=== PATIENT | male | born 1985 | race Asian ===

== ENCOUNTER 2016-11-07 23:27 | Emergency (ER) | payer OTHER ==
[2016-11-07 23:42] VITALS: BP 123/89
--- NOTE | 2016-11-08 00:21 | EDM.PDOC ---
ED HPI GENERAL MEDICAL PROBLEM - General Chief Complaint: Back Pain or Injury Stated Complaint: WORK INJURY RIGHT SIDE RIBS AREA/BACL Time Seen by Provider: 11/07/16 23:47 Source of Information: Reports: Patient History Limitations: Reports: No Limitations - History of Present Illness INITIAL COMMENTS - FREE TEXT/NARRATIVE: This is a 31-year-old male. 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 Apparently Wednesday he was pulling some produce while standing on a ladder and he had to reach up overhead and pulled real hard because the boxes were stuck with his right hand. He noted some pulling in his right side at the time but he is continued to work all week. 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 Due to the soreness and pain he comes to the ER. He says when he breathes real deep gets a catch in his side. He denies difficulty in breathing denies any other acute symptoms. Right Thoracic Pain Score (Numeric/FACES): 8 - Related Data Allergies Allergy/AdvReac Type Severity Reaction Status Date / Time aspirin Allergy Nose Bleeds Verified 11/07/16 23:42 Home Meds: Home Meds Cyclobenzaprine [Flexeril] 10 mg PO BEDTIME PRN #10 tablet 11/08/16 [Rx] Past Medical History - Past Health History Medical/Surgical History: Denies Medical/Surgical History Social & Family History - Tobacco Use Smoking Status *Q: Current Every Day Smoker Years of Tobacco use: 7 Packs/Tins Daily: 0.2 - Caffeine Use Caffeine Use: Reports: Energy Drinks - Recreational Drug Use Recreational Drug Use: No ED ROS GENERAL - Review of Systems Review Of Systems: See Below Constitutional: Reports: No Symptoms HEENT: Reports: No Symptoms Respiratory: Reports: Other (As per history of present illness) Cardiovascular: Reports: No Symptoms Endocrine: Reports: No Symptoms GI/Abdominal: Reports: No Symptoms : Reports: No Symptoms Musculoskeletal: Reports: Other (As per history of present illness) Skin: Reports: No Symptoms Neurological: Reports: No Symptoms Psychiatric: Reports: No Symptoms ED EXAM, UPPER BACK/NECK PAIN - Physical Exam Exam: See Below Exam Limited By: No Limitations General Appearance: Alert, WD/WN, No Apparent Distress Ears Exam: Normal External Exam Nose Exam: Normal Inspection Throat/Mouth Exam: Normal Inspection, Normal Lips, Normal Voice Head Exam: Normocephalic Neck Exam: Non-Tender, Full Range of Motion Cardiovascular/Respiratory: Regular Rate, Rhythm, No M/R/G GI/Abdominal: Soft Back Exam: Other (He has tenderness in his right rhomboid muscles and the left isthmus dorsi and trapezius muscles and also some tenderness in the lateral right ribs on palpation but there is no crepitus there is no movement of the ribs and there is no actual rib tenderness, reaching with his arm or overhead with his arm causes soreness in the side and catching in his side) Extremities: Normal Inspection, Normal Range of Motion, Other (He has full range of motion of his right shoulder even overhead) Neurologic: No Motor/Sensory Deficits, Alert, Normal Mood/Affect, Oriented x 3 Psychiatric: Normal Affect, Normal Mood Skin Exam: Normal Color, Warm/Dry Course - Vital Signs Last Recorded V/S: Last Vital Signs Temp 97 F 11/07/16 23:38 Pulse 66 11/07/16 23:38 Resp 16 11/07/16 23:38 BP 123/89 11/07/16 23:38 Pulse Ox 100 11/07/16 23:38 Departure - Departure Time of Disposition: 00:19 Disposition: Home, Self-Care 01 Condition: Good Clinical Impression: Upper back pain on right side Sprain of ribs Qualifiers: Encounter type: initial encounter Qualified Code(s): S23.41XA - Sprain of ribs , initial encounter Upper back strain Qualifiers: Encounter type: initial encounter Qualified Code(s): S29.012A - Strain of muscle and tendon of back wall of thorax, initial encounter - Discharge Information Prescriptions: Cyclobenzaprine [Flexeril] 10 mg PO BEDTIME PRN #10 tablet PRN Reason: Spasms Forms: ED Department Discharge, ED Return to Work/School Form Additional Instructions: Gentle activity at home, take the muscle relaxers especially at nighttime to help you sleep, use ice to those areas are so sore for the next 24 hours then you may begin to use some heat, take some ibuprofen or Aleve to help with the soreness as well, follow up with your companies designated medical provider within the week for recheck
== END 2016-11-08 00:40 | disposition home or self-care (01) ==
LOC: JD.ED 23:27
DX: S23.41XA Sprain of ribs, initial encounter (principal); S29.012A Strain of muscle and tendon of back wall of thorax, initial encounter; Z88.6 Allergy status to analgesic agent; F17.210 Nicotine dependence, cigarettes, uncomplicated; X50.9XXA Other and unspecified overexertion or strenuous movements or postures, initial encounter
CPT/HCPCS: 99283